=== PATIENT | male | born 1995 | race Two or more races ===

== ENCOUNTER 2018-12-07 21:00 | Emergency (ER) | payer OTHER ==
[2018-12-07] MEDS ORDERED: Silver Nitrate/Potassium Nitr* 1 EA STICK TOPICAL ONE (21:30)
[2018-12-07] MEDS ORDERED: Lidocaine 1% w EPI 1:100,000* MDV 20 ML VIAL INJ ONE (21:30)
--- NOTE | 2018-12-07 21:33 | ED ---
Laceration/Wound HPI - HPI Summary HPI Summary: This patient is a 23 year old male presenting to [facility] with a chief complaint of left 4th digit on the left hand laceration. Pt was cutting a lemon one hour ago when he cut his finger Pressure dressing is in place, bleeding controlled at Triage. Pt states that he is UTD on vaccinations. He rates his pain 5/10 in severity. - History of Current Complaint Stated Complaint: RT RING FINGER LAC PER PT Time Seen by Provider: 12/07/18 21:21 Hx Obtained From: Patient Mechanism of Injury: Sharp/Blunt Trauma Pain Intensity: 5 Pain Scale Used: 0-10 Numeric - Allergy/Home Medications Allergies/Adverse Reactions: Allergies Allergy/AdvReac Type Severity Reaction Status Date / Time No Known Allergies Allergy Verified 12/07/18 21:17 PMH/Surg Hx/FS Hx/Imm Hx Cardiovascular History: Denies: Hx Coronary Artery Disease Respiratory History: Denies: Hx Asthma Infectious Disease History: No Infectious Disease History: Denies: Traveled Outside the [place] in Last 30 Days - Family History Known Family History: Positive: Non-Contributory - Social History Occupation: Student Alcohol Use: Occasionally Hx Substance Use: No Substance Use Type: Reports: None Review of Systems Negative: Fever Positive: Other - Laceration All Other Systems Reviewed And Are Negative: Yes Physical Exam - Summary Physical Exam Summary: Constitutional: Well-developed, Well-nourished, Alert, Cooperative Skin: Warm, Dry. 4th finger on the left side the tip of his finger was cut off through the nail. No active bleeding. HENT: Normocephalic; No Racoons eyes; No bloom's sign; No abrasion; No contusion; No hemotympanum; No maxilla facial tenderness or instability; Dentition are smooth; No dental trauma; No trismus Eyes: EOM normal, PERRL Neck: Trachea is midline. No stridor; No JVD; No step off; No posterior cervical spine tenderness Cardio: Rhythm regular, rate normal Heart sounds normal; Intact distal pulses; The pedal pulses are 2+ and symmetric. Radial pulses are 2+ and symmetric. Pulmonary/Chest wall: Effort normal; Breath sounds normal; Equal chest rise; No flail segment; No rib tenderness; No sternal tenderness Abd: Soft, Appearance normal. No distension; No tenderness; No palpable pulsatile mass; No Cullens sign; No Ray-Turners sign Musculoskeletal: Full ROM and no tenderness at hips, ankles, shoulders, elbows and knees; No joint swelling; No vertebral body tenderness; No paraspinal tenderness; No step off or deformity of the spine; Pelvis is stable to lateral compression and rock Neuro: Alert, Oriented x3, Strength 5/5 all extremities. : No blood at urethral meatus Psych: Mood and affect Normal Triage Information Reviewed: Yes Vital Signs On Initial Exam: Initial Vitals Temp Pulse Resp BP Pulse Ox 99.0 F 78 16 133/81 98 12/07/18 21:10 12/07/18 21:10 12/07/18 21:10 12/07/18 21:10 12/07/18 21:10 Vital Signs Reviewed: Yes Procedures - Laceration/Wound Repair 1 Location: upper extremity Anesthesia: Local, 2.0%, Lido, Epi Sterile Dressing Applied?: Yes - One silver nitrate Diagnostics - Vital Signs Vital Signs Temp Pulse Resp BP Pulse Ox 12/07/18 21:10 99.0 F 78 16 133/81 98 - Laboratory Lab Statement: Any lab studies that have been ordered have been reviewed, and results considered in the medical decision making process. Laceration Repair Course/Dx - Course Course Of Treatment: Patient is here after severing the tip of his finger. Patient is actively bleeding. Patient had a finger tourniquet placed. Patient had a small volume of lidocaine with epinephrine injected into his wound. Patient continued small bleeding so silver nitrate was used to cauterize the bleeding. Patient had a pressure dressing placed and was discharged instructions not to remove until the morning. - Clinical Impression Provider Diagnoses: Finger laceration Discharge ED - Sign-Out/Discharge Documenting (check all that apply): Patient Departure - Discharge Patient Received Moderate/Deep Sedation with Procedure: No - Discharge Plan Condition: Stable Disposition: HOME Patient Education Materials: Laceration (ED) Referrals: No Primary Care Phys,NOPCP [Primary Care Provider] - Additional Instructions: Take the dressing off tomorrow morning, if the bleeding continues apply direct pressure. If this does not control the bleeding then come back to the ED. - Billing Disposition and Condition Condition: STABLE Disposition: Home - Attestation Statements Document Initiated by Scribe: Yes Documenting Scribe: Solitario Bucio Provider For Whom Scribe is Documenting (Include Credential): Harpal Aguilera MD Scribe Attestation: I, Solitario Bucio, scribed for Harpal Aguilera MD on 12/10/18 at 1127. Scribe Documentation Reviewed: Yes Provider Attestation: The documentation as recorded by the scribe, Solitario Bucio accurately reflects the service I personally performed and the decisions made by me, Harpal Aguilera MD Status of Scribe Document: Viewed
[2018-12-07] MEDS ORDERED: Lidocaine 2% EPI 1:200000 MPF* 10 ML VIAL INJ ONE (21:36)
[2018-12-07] MEDS ORDERED: Lidocaine 2% w/ EPI 1:200,000* 20 ML SDV VIAL ONE (21:36)
[2018-12-07] MEDS ORDERED: Acetaminophen TAB* 325 MG PO ONE (21:50)
[2018-12-07] MEDS ORDERED: Ibuprofen TAB* 600 MG PO ONE (21:50)
[2018-12-07 22:57] VITALS: BP 131/77
== END 2018-12-07 22:40 | disposition home or self-care (01) ==
LOC: ED 21:00
DX: S61.215A Laceration without foreign body of left ring finger without damage to nail, initial encounter (principal); W26.0XXA Contact with knife, initial encounter; Y93.G1 Activity, food preparation and clean up; Y92.9 Unspecified place or not applicable
CPT/HCPCS: 96374; 99282; A9270-GY

== ENCOUNTER 2018-12-08 13:46 | Emergency (ER) | payer OTHER ==
[2018-12-08] MEDS ORDERED: Tranexamic Acid 1,000 MG/10 ML SDV TOPICAL ONE (14:42)
[2018-12-08 15:39] VITALS: BP 120/79
--- NOTE | 2018-12-09 05:43 | ED ---
Laceration/Wound HPI - HPI Summary HPI Summary: This patient is a 23-year-old male presenting to the ED with continuing bleeding from a right ring finger laceration. He states he lacerated the area last evening from a lemon grater. At the time he presented to the ED, he states they used silver nitrate and wrapped the area well. He states the area continues to bleed beginning this morning, and comes in at this point for a dressing change. He denies any other symptoms. Denies any pain to the area. He did state he took aspirin this morning. - History of Current Complaint Stated Complaint: STILL BLEEDING FINGER INJ PER PT Time Seen by Provider: 12/08/18 13:51 Hx Obtained From: Patient Mechanism of Injury: Sharp/Blunt Trauma Onset/Duration: Sudden Onset Aggravating: Movement Alleviating: Compression Timing: Constant Onset Severity: Mild Current Severity: Mild Pain Intensity: 1 Pain Scale Used: 0-10 Numeric Associated Signs & Symptoms: Negative - Allergy/Home Medications Allergies/Adverse Reactions: Allergies Allergy/AdvReac Type Severity Reaction Status Date / Time No Known Allergies Allergy Verified 12/07/18 21:17 Home Medications: Home Medications Aspirin 162 mg PO DAILY PRN 12/08/18 [History Confirmed 12/08/18] PMH/Surg Hx/FS Hx/Imm Hx Previously Healthy: Yes Cardiovascular History: Denies: Hx Coronary Artery Disease Respiratory History: Denies: Hx Asthma - Immunization History Hx Pertussis Vaccination: No Immunizations Up to Date: Yes Infectious Disease History: No Infectious Disease History: Denies: Traveled Outside the [place] in Last 30 Days - Family History Known Family History: Positive: Non-Contributory - Social History Occupation: Unemployed Lives: With Family Alcohol Use: Occasionally Hx Substance Use: No Substance Use Type: Reports: None Hx Tobacco Use: No Smoking Status (MU): Never Smoked Tobacco Review of Systems Constitutional: Negative Negative: Fever, Chills, Fatigue, Skin Diaphoresis Negative: Palpitations, Chest Pain Negative: Shortness Of Breath, Cough Genitourinary: Negative Positive: no symptoms reported, see HPI Negative: Arthralgia, Myalgia Positive: Other - bleeding wound - r ring finger - distal tip Neurological: Negative All Other Systems Reviewed And Are Negative: Yes Physical Exam Triage Information Reviewed: Yes Vital Signs On Initial Exam: Initial Vitals Temp Pulse Resp BP Pulse Ox 99.2 F 68 16 142/84 99 12/08/18 13:47 12/08/18 13:47 12/08/18 13:47 12/08/18 13:47 12/08/18 13:47 Vital Signs Reviewed: Yes Appearance: Positive: Well-Appearing, Well-Nourished Skin: Positive: Skin Color Reflects Adequate Perfusion, Other - right ring finger - distal tip Head/Face: Positive: Normal Head/Face Inspection Eyes: Positive: EOMI, JUVENCIO, Conjunctiva Clear Neck: Positive: Nontender, No Lymphadenopathy Respiratory/Lung Sounds: Positive: Clear to Auscultation, Breath Sounds Present Cardiovascular: Positive: RRR, Pulses are Symmetrical in both Upper and Lower Extremities Musculoskeletal: Positive: Strength/ROM Intact Neurological: Positive: Speech Normal Psychiatric: Positive: Affect/Mood Appropriate Diagnostics - Vital Signs Vital Signs Temp Pulse Resp BP Pulse Ox 12/08/18 15:38 97.9 F 75 18 120/79 98 12/08/18 13:47 99.2 F 68 16 142/84 99 - Laboratory Lab Statement: Any lab studies that have been ordered have been reviewed, and results considered in the medical decision making process. Laceration Repair Course/Dx - Course Course Of Treatment: During the course of treatment, the patient's evaluated for continuing bleeding on a right ring finger abrasion/laceration injury from a lemon grater. placed pressure over the area. occlusive gauze used with no effect. Surgicel soaked in TXA and applied pressure. This with good effect and after 30 minutes, no bleeding was noted. He is encouraged to keep pressure dressing applied for approximately 2 days unless the area becomes numb, tingling or cold. - Differential Dx Differental Diagnoses: Avulsion, Laceration - Clinical Impression Provider Diagnoses: Bleeding from wound, Avulsion, finger tip Discharge ED - Sign-Out/Discharge Documenting (check all that apply): Patient Departure Patient Received Moderate/Deep Sedation with Procedure: No - Discharge Plan Condition: Stable Disposition: HOME Referrals: No Primary Care Phys,NOPCP [Primary Care Provider] - Additional Instructions: Please dress the area as shown Follow up with [facility] next week Return to the ED if the area continues to bleed despite rewrapping the area at home - Billing Disposition and Condition Condition: STABLE Disposition: Home
== END 2018-12-08 15:38 | disposition home or self-care (01) ==
LOC: ED 13:46
DX: S61.214A Laceration without foreign body of right ring finger without damage to nail, initial encounter (principal); Z79.82 Long term (current) use of aspirin; W45.8XXA Other foreign body or object entering through skin, initial encounter; Y92.9 Unspecified place or not applicable
CPT/HCPCS: 99281